=== PATIENT | female | born 1995 | race Caucasian/White ===

== ENCOUNTER 2021-10-25 17:37 | Emergency (ER) | payer OTHER, SELFPAY ==
[2021-10-25 17:46] VITALS: BP 120/86; PULSE 121; RESP 16; TEMP 37.3; O2SAT 99
--- NOTE | 2021-10-25 18:14 | ED.URI ---
HPI - URI/Sore Throat General Chief Complaint: Upper Respiratory Infection Stated Complaint: ears and throat hurts Time Seen by Provider: 10/25/21 17:50 Source: patient and RN notes reviewed Mode of arrival: ambulatory Limitations: no limitations History of Present Illness HPI Narrative: Patient presents today with a 2-day history of right ear pain, sore throat, rhinorrhea, occasional cough, and fever up to 99.6. She has been taking Tylenol and ibuprofen without relief and currently rates her pain 6/10. 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 She has been vaccinated against COVID-19 and influenza. MD elicited complaint: sore throat Related Data Allergies Allergy/AdvReac Type Severity Reaction Status Date / Time amoxicillin Allergy Unknown Verified 10/25/21 17:50 Review of Systems Review of Systems: CONSTITUTIONAL: Denies body aches, chills, or sweats.+ Fever EYES: Denies visual changes, redness, or discharge. ENT: Denies congestion. + Sore throat, right ear pain, rhinorrhea CARDIOVASCULAR: Denies chest pain, palpitations, or edema. RESPIRATORY: Denies dyspnea.+ Occasional cough GASTROINTESTINAL: Denies abdominal pain, nausea, vomiting, or diarrhea. GENITOURINARY: Denies dysuria or hematuria. SKIN: Denies rash, itching, or wounds. MUSCULOSKELETAL: Denies back pain, joint pain, or myalgia. NEUROLOGIC: Denies headache, numbness, tingling, or weakness. PSYCH: Denies depression or anxiety. PMFSH Comments At time of signature, I have reviewed and agree with nursing past medical, surgical, social and family history unless otherwise noted. Please see nursing chart for further information. There is no relevant family history pertinent to the presenting complaint Exam Narrative: GENERAL: Well-appearing, well-nourished, and in no acute distress. HEAD: Normocephalic, atraumatic. EYES: EOMI. No redness or drainage. Conjunctivae normal. ENT: Mucous membranes pink and moist. Nares clear. No rhinorrhea. TMs normal bilaterally. Throat mildly erythematous without edema or exudate. Uvula midline. NECK: Normal AROM. Supple. No lymphadenopathy. CHEST: No respiratory distress. Clear to auscultation. HEART: Regular rate and rhythm. No murmur appreciated. Normal peripheral pulses. EXTREMITIES: Normal range of motion. No edema. SKIN: Warm, dry, no rash. Capillary refill normal. Normal skin turgor. NEURO: No focal deficits. Alert and oriented x3. Gait steady. PSYCH: Normal affect. No signs of depression or anxiety. Course Vital Signs Vital signs: Vital Signs Temperature 99.1 F 10/25/21 17:46 Pulse Rate 121 H 10/25/21 17:46 Respiratory Rate 16 10/25/21 17:46 Blood Pressure 120/86 10/25/21 17:46 Pulse Oximetry 99 10/25/21 17:46 Temperature 99.1 F 10/25/21 17:46 Pulse Rate 121 H 10/25/21 17:46 Respiratory Rate 16 10/25/21 17:46 Blood Pressure 120/86 10/25/21 17:46 Pulse Oximetry 99 10/25/21 17:46 Reviewed. Pt has been instructed to follow up with her PCP regarding her elevated blood pressure today. MDM - URI/Sore Throat Differential Diagnosis Differential diagnosis: Likely upper respiratory infection, otitis media, viral infection, pharyngitis and other (Strep throat) Lab Data Attestation: I reviewed the patient's lab results. Labs: Strep Screen Presumptive Negative *(Reference Range: Negative)* Critical Care Time Critical Care Time Critical Care Time: No Discharge Plan Discharge Clinical Impression: Upper respiratory infection Qualifiers: URI type: unspecified URI Qualified Code(s): J06.9 - Acute upper respiratory infection, unspecified Pharyngitis Qualifiers: Pharyngitis/tonsillitis etiology: unspecified etiology Qualified Code(s): J02.9 - Acute pharyngitis, unspecified Patient Disposition: Home, Self-Care Condition: Stable Instructions: Pharyngitis (ED), Upper Respiratory Infectio
== END 2021-10-25 18:23 | disposition home or self-care (01) ==
PROVIDERS: Emergency Provider Nurse Practitioner; PCP Nurse Practitioner
DX: J06.9 Acute upper respiratory infection, unspecified (principal); J02.9 Acute pharyngitis, unspecified
CPT/HCPCS: 87081; 87880; 99213; G0463

== ENCOUNTER 2025-03-01 13:14 | Outpatient (CLI) | payer OTHER, SELFPAY ==
--- OUTSIDE RECORDS SUMMARY | 2025-03-01 13:34 | XMS_ITS | Clinical Summary ---
Author Organization [facility] [place] [address] Address [address] [place] [address] Care Team Providers Care Physician Executive Name Role Phone Tara Jauregui MD Primary Care Provider [phone] Allergies Active Allergy Reactions Criticality Noted Date Comments Amoxicillin Rash Medium 12/03/2023 Clindamycin Nausea & Vomiting Low 10/08/2024 Onion Anaphylaxis High 03/01/2024 Zolpidem Hallucinations High 03/11/2016 Medications 1 mg-20 mcg (24)/75 mg (4) per tablet Take 1 tablet by mouth daily 3 Active benzonatate (TESSALON) 100 mg capsuleIndicati ons:Cough Take 1 capsule (100 mg total) by mouth 3 (three) times a day as needed for cough 21 capsule 4 Active albuterol HFA (PROVENTIL HFA,VENTOLIN HFA,PROAIR HFA) 90 mcg/actuation inhaler Inhale 2 puffs every 6 (six) hours as needed 0 Active budesonide-form oteroL (SYMBICORT) 80-4.5 mcg/actuation inhaler Inhale 2 puffs daily 4 Active ergocalciferol (VITAMIN D) 50,000 unit capsule Take 1 capsule (50,000 Units total) by mouth once a week Active fluticasone propionate (FLONASE) 50 mcg/actuation nasal spray 1 spray daily Acti ve hydrOXYzine (ATARAX) 50 mg tablet Take 2 tablets nightly to help with sleep. 4 Active lidocaine viscous (XYLOCAINE) 2 % solution PLACE 5 M[address] BY MOUTH 3-4 TIMES DAILY NEEDED Active risperiDONE (RisperDAL) 0.5 mg tablet Take 1 tablet (0.5 mg total) by mouth 2 (two) times a day Active scopolamine 1 mg over 3 days patch 3 day APPLY ONE PATCH ONTO THE SKIN EVERY THIRD DAY DIRECTED Active cefdinir (OMNICEF) 300 mg capsule Take 1 capsule (300 mg total) by mouth 2 (two) times a day for 7 days 14 capsule 5 02/07/20 25 metroNIDAZOLE (FLAGYL) 500 mg tablet Take 1 tablet (500 mg total) by mouth 2 (two) times a day for 7 days 14 tablet 5 02/07/20 Active Problems No known active problems Encounters Date Type Department Care Team Description 01/30/2025 11:00 AM CDT Office Visit [facility] Medical [facility]ient [facility] at [address] [address] Samantha Crowder PA Dental infection (Primary Dx) from Last 3 Months Social History Tobacco Use Types Packs/Day Years Used Date Smoking Tobacco: Never Assessed Comments Unknown Sex and Gender Information Value Date Recorded Sex Assigned at Not on file Legal Sex 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 Gender Identity Not on file Sexual Orientation Not on file Obstetrics History Last Filed Vital Signs Vital Sign Reading Time Taken Comments Blood Pressure 114/77 01/30/2025 10:51 AM CDT Pulse 107 01/30/2025 10:51 AM CDT Temperature 36.9 C (98.4 F) 01/30/2025 10:51 AM CDT Respiratory Rate 20 01/30/2025 10:51 AM CDT Oxygen Saturation 98% 01/30/2025 10:51 AM CDT Inhaled Oxygen Concentration - - Weight 70.9 kg (156 lb 3.2 oz) 01/30/2025 10:51 AM CDT Height 157.5 cm (5' 2 ) 10/08/2024 4:20 PM BENCH WORKER APPRENTICE Body Mass Index 28.57 10/08/2024 4:20 PM BENCH WORKER APPRENTICE Plan of Treatment Health Maintenance Due Date Last Done Comments Cervical Cancer Screening 1997 Depression Screening 1997 Hepatitis C Screening 1997 Regular Well Visit/Exam 18-64 2015 Pneumococcal vaccine <65 (1 of 2 - PCV) 2016 Covid-19 Vaccine (3 - 2023- season) 2024 09/29/2021, 04/02/2021 DTaP/Tdap/Td Vaccine (7 - Td or Tdap) 08/16/2034 08/16/2024, 06/18/2009, 05/31/2003, Additional history exists Hepatitis B Screening Completed 06/11/1998, 997 Varicella Vaccines Completed 06/18/2009, 03/26/1999 Influenza Vaccine Completed 08/16/2024, 08/28/2021 HPV Vaccines Aged Out No longer eligi ble based on patient's age to complete this topic Insurance * Guarantor: Brinda Meier Account Type Relation to Patient Date of Phone Billing Address Personal/Family Self 1995 [address] [place] [address] [facility] * Guarantor: Brinda Meier Account Type Relation to Patient Date of Phone Billing Address Personal/Family Self 1995 [address] [place] [address] Care Teams Physician Executive Relationship Specialty Start Date End Date Tara Jauregui MD [address] [place] [address] PCP - General Internal Medicine 12/03/23
--- OUTSIDE RECORDS SUMMARY | 2025-03-01 13:34 | XMS_ITS | Referral Summary ---
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 Gender Identity Not on file Sexual Orientation Not on file Last Filed Vital Signs Vital Sign Reading [...] cm (5' 2 ) 10/08/2024 4:20 PM PROPERTIES SUPERVISOR Body Mass Index 28.57 10/08/2024 4:20 PM PROPERTIES SUPERVISOR Plan of Treatment Not on file Insurance * Guarantor: Brinda Meier Account Type Relation to Patient Date of Phone Billing Address Personal/Family Self 1995 [address] [place] [address] [facility] * Guarantor: Brinda Meier Account Type Relation to Patient Date of Phone Billing Address Personal/Family Self 1995 [address] [place] [address] 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
--- OUTSIDE RECORDS SUMMARY | 2025-03-01 13:34 | XMS_ITS | Clinical Summary ---
Author Organization [facility] Address [facility] [place] [address] Care Team Providers Care Business Risk Consultant Name Role Phone Tara Jauregui MD Primary Care Provider [phone] Allergies Active Allergy Reactions Criticality Noted Date Comments Amoxicillin Rash Medium 12/03/2023 Amoxicillin-Pot Clavulanate Rash Low 03/11/2016 Clindamycin Chest pressure,Nause a and Vomiting Low 10/08/2024 Onion Anaphylaxis High 03/01/2024 Zolpidem Hallucinations High 03/11/2016 Medications albuterol sulfate HFA (PROAIR HFA) 108 (90 Base) MCG/ACT inhalerIndicatio ns:Mild intermittent asthma without complication (HHS/HCC) Inhale 2 puffs into the lungs every 6 (six) hours as needed for Wheezing. 1 Inhaler 5 07/02/20 20 Active ABIGAIL FE 1.5/30 1.5-30 MG-MCG tablet Take 1 tablet by mouth daily. 12/21/19 24 Active scopolamine (TRANSDERM-SCOP) 1 MG/3DAYS patchIndications :Motion sickness, initial encounter Place 1 patch onto the skin every third day. 24 patch 3 03/01/20 24 Active EPINEPHrine 0.3 MG/0.3ML injectionIndicat ions:Allergic reaction, initial encounter Inject 0.3 mLs (0.3 mg total) into the muscle as needed for Anaphylaxis (Call 911 immediately after using EpiPen and go immediately to the emergency room). 1 each 5 03/01/20 24 Active vitamin D2, ergocalciferol, (DRISDOL) 1.25 mg capsuleIndicatio ns:Routine general medical examination at a health care facility Take 1 capsule (1.25 mg total) by mouth every 7 days. 12 capsule 3 03/01/20 24 Active budesonide-formo terol (SYMBICORT) 80-4.5 MCG/ACT inhalerIndicatio ns:Mild persistent asthma without complication (HHS/HCC) Inhale 2 puffs into the lungs daily. 10.2 g 3 05/01/20 24 Active albuterol sulfate HFA 108 (90 Base) MCG/ACT inhalerIndicatio ns:Mild persistent asthma without complication (HHS/HCC) Inhale 2 puffs into the lungs every 6 (six) hours as needed for Wheezing. 18 g 3 05/01/20 24 Active hydrOXYzine (ATARAX) 50 MG tabletIndication s:Generalized anxiety disorder,Insomni a, persistent Take 2 tablets nightly to help with sleep. 60 tablet 01/24/20 25 Active fluticasone propionate (FLONASE) 50 MCG/ACT nasal sprayIndications :Allergic reaction, initial encounter 1 spray by Each Nostril route daily. 16 mL 3 01/24/20 25 Active risperiDONE (RISPERDAL) 4 MG tabletIndication s:Bipolar affective disorder, currently depressed, mild (CMS/HCC HHS/HCC),Major depression with psychotic features (CMS/HCC HHS/HCC) Take 1 tablet (4 mg total) by mouth nightly. 90 tablet 1 02/21/20 25 Active buPROPion (WELLBUTRIN) 100 MG tabletIndication s:Major depression with psychotic features (CMS/HCC HHS/HCC) Take 1 tablet (100 mg total) by mouth daily. 180 tablet 1 02/21/20 25 Active risperiDONE (RISPERDAL) 2 MG tabletIndication s:Bipolar affective disorder, currently depressed, mild (CMS/HCC HHS/HCC),Major depression with psychotic features (CMS/HCC HHS/HCC) Take 1 tablet (2 mg total) by mouth 2 (two) times daily. 180 tablet 01/17/20 25 025 Discontin ued(Reord er) buPROPion (WELLBUTRIN) 100 MG tabletIndication s:Major depression with psychotic features (CMS/HCC HHS/HCC) Take 1 tablet (100 mg total) by mouth daily. 90 tablet 1 01/17/20 25 025 Discontin ued(Reord er) Active Problems Problem Noted Date Diagnosed Date Major depression with psychotic features (CMS/HC C [facility]) 10/23/2020 Premenstrual syndrome 09/06/2017 Decreased hearing 07/05/2017 BMI 24.0-24.9, adult 07/05/2017 Insomnia, persistent 08/17/2016 Vasculitis 04/08/2016 Depression 03/11/2016 Deaf, bilateral 03/11/2016 Asthma ([facility]) 03/11/2016 Anxiety disorder 03/11/2016 Resolved Problems Problem Noted Date Diagnosed Date Resolved Date Nausea & vomiting 06/21/2020 10/23/2020 Encounters Date Type Department Care Team Description 02/20/2025 2:40 PM CDT Office Visit [place] [address] [address] [facility] [address] [place] [address] Tara Jauregui MD Follow Up (No questions or concerns today. /4 week follow up Anxiety, BPD, Depression. /DARREL and PHQ done /); Anxiety; Depression; Bipolar Disorder 02/20/2025 Travel 01/23/2025 Telephone [facility] [address] [facility] [address] [place] [address] Tara Jauregui MD Medication 01/16/2025 1:40 PM PATIENT MANAGER Office Visit [place] [address] [address] [facility] [address] [place] [address] Tara Jauregui MD Follow Up; Anxiety; Depression; Bipolar Disorder 01/16/2025 Travel from Last 3 Months Immunizations Immunization Administration Dates Next Due Dtap 05/31/2003, 9,05/14/1998,03/25 Fluzone (IIV3, Trivalent, 0. 5 ML Prefilled Syringe) 08/16/2024 HPV GARDASIL 9-VALENT 08/16/2024,06/19/2024 Hepatitis B 06/11/1998,1997 Hepatitis B Pediatric 06/11/1998,1997 Hib (Generic) 03/26/1999,05/14/1998,03/25/1998 Influenza Adult (Generic) 08/28/2021 MMR 05/31/2003,03/26/1999 MMR (MMRII) 09/04/2015 MODERNA COVID-19 (12+) MRNA, LNP-S, PF, 100 MCG/ 0.5 ML DOSE 09/29/2021,04/02/2021 Menactra 09/10/2015 Meningococcal (Generic) 06/18/2009 Pneumococcal (Prevnar 20) 05/01/2024 Polio IPV (Ipol) 05/31/2003,05/14/1998, 8 Td (Tenivac) preservative free 1997 Tdap (Adacel) 08/16/2024 Tdap (Boostrix) 06/18/2009 Varicella Vaccine 06/18/2009,03/26/1999 Family History Medical History Relation Comments Mental Health Brother Alcohol Abuse Father Drug Abuse Father Mental Health Father COPD Maternal Aunt Cancer Maternal Aunt Arthritis Maternal Grandfather Cancer Maternal Grandfather Drug Abuse Maternal Grandfather Heart Disease Maternal Grandfather Hypertension Maternal Grandfather Mental Health Maternal Grandfather Stroke Maternal Grandfather Arthritis Maternal Grandmother COPD Maternal Grandmother Cancer Maternal Grandmother unknown lik brianne mets Drug Abuse Maternal Grandmother Heart Disease Maternal Grandmother Hypertension Maternal Grandmother Mental Health Maternal Grandmother Arthritis Mother Asthma Mother Cancer Mother chrondrosarcoma. Depression Mother Drug Abuse Mother Hypertension Mother Mental Health Mother COPD Paternal Grandfather Drug Abuse Paternal Grandfather Early Hearing Loss Paternal Grandfather Alcohol Abuse Paternal Grandmother COPD Paternal Grandmother Cancer Paternal Grandmother Hypertension Paternal Grandmother Mental Health Paternal Grandmother Stroke Paternal Grandmother Asthma Sister Depression Sister Mental Health Sister Relation Status Comments Brother Father Maternal Aunt Maternal Grandfather Maternal Grandmother Mother Paternal Grandfather Paternal Grandmother Sister Social History Tobacco Use Types Packs/Day Years Used Date Smoking Tobacco: Never Passive Smoke Exposure: Never Smokeless Tobacco: Never Tobacco Cessation:Counseling Given: Yes Comments:Counseled by Dr. Jauregui. Alcohol Use Standard Drinks/Week Comments Yes 3.3 (1 standard drink = 0.6 oz p ure alcohol) monthly AUDIT-C Answer Date Recorded Q1: How often do you have a drink containing alc ohol? Monthly or less 03/01/2024 Q2: How many drinks containi ng alcohol do you have on a typical day when you are drinking? 1 or 2 03/01/2024 Q3: How often do you have si x or more drinks on one occasion? Never 03/01/2024 PHQ-2 Answer Date Recorded Patient Health Questionnaire-2 Score 1 02/20/2025 Comments No Sex and Gender Information Value Date Recorded Sex Assigned at Female 01/16/2025 1:27 PM PATIENT MANAGER Legal Sex Female 9:13 PM CDT Gender Identity Female 01/16/2025 1:27 PM PATIENT MANAGER Sexual Orientation Bisexual 02/20/2025 2: 50 PM CDT Last Filed Vital Signs Vital Sign Reading Time Taken Comments Blood Pressure 124/84 02/20/2025 2:54 PM CDT Pulse 96 02/20/2025 2:54 PM CDT Temperature 36.2 C (97.1 F) 02/20/2025 2:54 PM CDT Respiratory Rate 16 02/20/2025 2:54 PM CDT Oxygen Saturation 98% 02/20/2025 2:54 PM CDT Inhaled Oxygen Concentration - - Weight 73 kg (161 lb) 02/20/2025 2:54 PM CDT Height 157.5 cm (5' 2 ) 02/20/2025 2:54 PM CDT Body Mass Index 29.45 02/20/2025 2:54 PM CDT Plan of Treatment Upcoming Encounters Date Type Department Care Team (Late st Contact Info) Description 05/08/2025 8:10 AM CDT Laboratory Only [facility] Medical [facility] - [place] [address] [address] [place] [address] Tara Jauregui MD [facility] [address] 05/16/2025 2:20 PM CDT Office Visit [facility] Medical Group Multispecialty [facility] [place] [address] [address] [place] [address] Tara Jauregui MD [address] [place] [phone] Health Maintenance Due Date Last Done Comments Hepatitis B Vaccines (4 of 4 - 4-dose series) 08/06/1998 06/11/1998, 06/11/1998, 1997, Additional history exists Cervical Cancer Screening Pap Smear (Age 21 to 29) Every 3 Years 08/20/2023 08/20/2020 Cervical Cancer Screening 08/20/2023 HPV Vaccines (3 - 3-dose series) 12/20/2024 08/16/2024, 06/19/2024 Annual Physical 03/01/2025 03/01/2024, 08/20/2020 COVID-19 Vaccine ( season) 2026 09/29/2021, 04/02/2021 Postponed from 07/16/2024 (Patient Refused) DTaP, Tdap and Td Vaccines (7 - Td or Tdap) 08/16/2034 08/16/2024, 06/18/2009, 05/31/2003, Additional history exists Meningococcal Vaccine Completed 09/10/2015, 009 Pneumococcal Vaccine: Pediatrics (0 to 5 Years) and At-Risk Patients (6 to 49 Years) Completed 05/01/2024 Hepatitis C Completed 08/16/2024 PHQ-2 (Physician Blachly) Completed 02/20/2025 Meningococcal B Vaccine Aged Out No l onger eligible based on patient's age to complete this topic RSV Immunizations Under 20 Months Aged Out No longer eligible based on patient's age to complete this topic Procedures Procedure Name Priority Date/Time Associated Diagnosis Comments HEPATITIS C ANTIBODY Routine 08/16/2024 9:25 AM CDT General medical exam OUTSIDE CYTOPATH CERV/VAG INTERPRET (PAP) (SCAN ORDER) 08/20/2020 from Last 3 Months or Most Recently Relevant to Health Maintenance Results * HEPATITIS C ANTIBODY (08/16/2024 9:25 AM CDT) HEPATITIS C AB NON-REACTI VE NON-REACT KHLOE 08/16/2024 8:03 PM CDT [facility] Comment: ANTIBODIES TO HCV NOT DETECTED. DOES NOT EXCLUDE THE POSSIBILITY OF EXPOSURE TO HCV. 08/16/2024 9:25 AM CDT Tara Jauregui MD LABORATORY Final Result [facility] [address] [place] [address], [place] [phone] [id number] * OUTSIDE CYTOPATH CERV/VAG INTERPRET (PAP) (08/20/2020) 08/20/2020 Narrative 08/20/2020 Ordered by an unspecified provider. us Documents Scanned SCANNING Final Result from Last 3 Months or Most Recently Relevant to Health Maintenance Insurance [place] Care Teams Business Risk Consultant Relationship Specialty Start Date End Date Tara Jauregui MD [address] [facility] [address] [place] [address] PCP - General INTERNAL MEDICINE 11/24/23
[2025-03-01 15:36] LABS: Add Urine Microscopic? YES; Appearance Urine Cloudy (Clear); Bacteria Urine 1+ /hpf; Bilirubin Urine Negative (Negative); Blood Urine Negative (Negative); Color Urine Yellow (Yellow); Glucose Urine UA Negative (Negative); Ketones Urine 2+ mg/dL (Negative); Leukocyte Esterase Ur Trace LEU/UL (Negative); Need Manual Microscopic Reviewed; Nitrate Urine Negative (Negative); Non Pathogenic Casts 0-2; Protein Urine Negative (Negative); Specific Grav Ur 1.007 (1.001-1.035); Squamous Epithelial Cell Urine Moderate /hpf (Few); Urobilinogen Urine 0.2 mg/dL (<2.0); WBC Urine 0-5 /hpf (0-3)
== END 2025-03-01 13:15 | disposition home or self-care (01) ==
PROVIDERS: PCP Internal Medicine; Visit Provider Obstetrics & Gynecology
DX: R30.0 Dysuria (principal)
CPT/HCPCS: 81001

== ENCOUNTER 2025-03-06 20:31 | Emergency (ER) | payer OTHER, SELFPAY ==
[2025-03-06 20:33] VITALS: BP 130/86; PULSE 99; RESP 18; TEMP 36.8; O2SAT 97
--- NOTE | 2025-03-06 20:50 | ED.NAVMDI ---
HPI - Nausea/Vomiting/Diarrhea General Chief complaint: Abdominal Pain Stated complaint: N/V, abd pain Time Seen by Provider: 03/06/25 20:35 History of Present Illness HPI Narrative: 29-year-old female with a past medical history including major depressive disorder. She presents to the emergency room with chief complaint of nausea vomiting. She states she was recently diagnosed with urinary tract infection on the and sent home with Macrobid. She states she has been developing some nausea vomiting since taking this medication and believe she may be having a sensitivity or intolerance to this medication. She has a history of allergies to amoxicillin clindamycin. Patient denies having any fever, chills, shortness a breath, diarrhea. She started developing some abdominal discomfort today localized to her umbilical region. Denies any trauma or injury. Denies any chance of . She was otherwise in her normal state of health. Tried some Zofran earlier today without any significant relief. Pain is minor and comes and goes. Related Data Home Medications ?Medication ?Instructions ?Recorded ?Confirmed ?Last Taken ?Type budesonide-formoterol HFA 80 2 puff inhalation Q12H 05/03/23 02/13/25 Unknown History mcg-4.5 mcg/actuation aerosol inhaler bupropion HCl 100 mg tablet mg PO 02/13/25 02/13/25 Unknown History risperidone 2 mg tablet mg PO 02/13/25 02/13/25 Unknown History Allergies Allergy/AdvReac Type Severity Reaction Status Date / Time amoxicillin Allergy Unknown Verified 02/13/25 13:25 clindamycin AdvReac Intermediate Chest Pain Verified 02/13/25 13:25 Review of Systems Review of Systems: As reviewed above in HPI [facility] Past Medical History Medical History Major depressive disorder Surgical History Surgical History History of placement of ear tubes ~2012 Family History Family History Father Alcoholism Depression Mother Asthma Cancer Hypertension Depression Sibling Asthma Depression Grandparent Alcoholism Asthma Cancer Hypertension Depression Heart disease Cerebrovascular accident Thyroid disorder Grandparent Alcoholism Depression Heart disease Cerebrovascular accident Social History Social History Social History: Caffeine- dasily Smoking status: Never smoker Alcohol intake: never Substance use: current Substance use type: marijuana Do You Feel Safe in your Home?: Yes Lack of Transportation: YES Lack of Food: Never True Current Housing: I Have Housing Concerned About Future Housing: No Difficulty Paying Gas/Electric Bills: No Difficulty Paying for Meds: No Currently Unemployed: No Education: High School Diploma/GED Difficulty w/ Childcare or Family Care: No Living arrangements: with family Occupation/Education: occupation 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 Mucous membranes moist. NECK: Supple. CHEST: [Clear to auscultation. No respiratory distress.] HEART: [Regular rate and rhythm]. No murmur heard. [Normal peripheral pulses.] ABDOMEN: [Soft, nondistended], [nontender], [No rigidity or guarding] EXTREMITIES: Normal range of motion. [No edema.] SKIN: Warm, dry, no rash. NEURO: [No focal deficits]. Alert and oriented [x3.] PSYCH: [Normal mood and affect.] Course Vital Signs Vital signs: Vital Signs Temperature 36.8 C 03/06/25 20:33 Pulse Rate 99 03/06/25 20:33 Respiratory Rate 18 03/06/25 20:33 Blood Pressure 130/86 03/06/25 20:33 Pulse Oximetry 97 03/06/25 20:33 Oxygen Delivery Room Air 03/06/25 20:33 Temperature 36.8 C 03/06/25 20:33 Pulse Rate 99 03/06/25 20:33 Respiratory Rate 18 03/06/25 20:33 Blood Pressure 128/109 H 03/06/25 22:00 Pulse Oximetry 98 03/06/25 22:00 Oxygen Delivery Room Air 03/06/25 20:33 MDM - Nausea/Vomiting/Diarrhea MDM Narrative Medical decision making narrative: 29-year-old female presenting to the emergency department with nausea vomiting for several days. Recently diagnosed with the urinary tract infection and started on Macrobid. She has a history of intolerance to several antibiotics and thinks she could be having some difficulties with Macrobid as she has never had before. Denies any diarrhea, shortness a breath, fever chills. She is not remarkable examination was soft nontender nondistended abdomen. Normal vital signs. She did she was complaining of some umbilical pain that comes and goes but has been on breast examination. She denies any urinary complaints at this time and states that she feels like this is cleared up. Given her overall well appearance and normal vital signs with a largely unremarkable examination suspicion for intra-abdominal pathology such as appendicitis, gastritis, gastroenteritis is low. Possibility for Macrobid causing GI distress. Will obtain laboratory studies including CBC, CMP, lipase. She was given a fluid bolus and some Reglan as Zofran was not helping her at home. Patient will be re-evaluated. Will hold off on any imaging studies at this time given her age unless there is some concerning findings on laboratory exam or reassessments. Patient's workup was reassuring. No leukocytosis or anemia. Normal platelet count. Her electrolytes show a anion gap of 15, normal glucose, normal electrolytes otherwise. Consistent with a starvation ketosis especially with her urinalysis showing 4+ ketones. Normal LFTs. She was given a D5 LR bolus in addition to her fluids. Urinalysis shows squamous cells and contamination, no convincing evidence of urinary tract infection. Patient has normal vital signs, normal workup here and can be safely discharged home at this time. She is given a prescription for Reglan as needed and return precautions and instructed to follow-up with her primary care provider. Medical Records Attestation: I reviewed the patient's medical records. Lab Data Attestation: I reviewed the patient's lab results. 03/06/25 20:59 03/06/25 20:59 Labs: Lab Results 03/06/25 03/06/25 03/06/25 Range/Units 20:59 21:25 21:55 WBC 9.1 (4.5-10.0) K/mm3 RBC 4.78 (4.2-5.4) M/mm3 Hgb 12.7 (12.0-15.0) g/dL Hct 40.3 (37.0-47.0) % MCV 84.3 (80-100) fl MCH 26.6 (26-34) pg MCHC 31.5 L (32-36) g/dl RDW 14.1 (11.5-14.5) % Plt Count 319 (150-375) k/mm3 MPV 10.6 H (7.4-10.4) fl Immature Gran % (Auto) 0.3 (0-0.5) % Neut % (Auto) 78.0 H (45.5-73.1) % Lymph % (Auto) 15.0 L (18.3-44.2) % [place] % (Auto) 5.7 (2.6-8.5) % Eos % (Auto) 0.6 (0-4.4) % Baso % (Auto) 0.4 (0.2-1.2) % Lymph # (Auto) 1.36 (0.9-3.2) K/mm3 [place] # (Auto) 0.5 (0.1-0.6) K/mm3 Eos # (Auto) 0.1 (0-0.3) K/mm3 Baso # (Auto) 0.0 (0.0-0.1) K/mm3 Abs Immat Gran (auto) 0.03 (0.00-0.031) K/mm3 Absolute Neuts (auto) 7.1 H (1.3-6.7) K/mm3 Absolute Nucleated RBC 0.000 (0.0-0.012) K/mm3 Nucleated RBC % 0.0 (0.0-0.2) % Sodium 140 (137-145) mmol/L Potassium 3.9 (3.4-5.0) mmol/L Chloride 106 (98-107) mmol/L Carbon Dioxide 19 L (22-30) mmol/L Anion Gap 15 H (4-12) mmol/L BUN 5 L (7-17) mg/dL Creatinine 0.68 L (0.7-1.0) mg/dL Estim Creat Clear Calc 97 ml/min Estimated GFR > 60 (59 - ) Glucose 93 (65-110) mg/dL Calcium 9.3 (8.4-10.2) mg/dL Total Bilirubin 0.8 (0.2-1.3) mg/dL AST 24 (14-36) U/L ALT 18 (6-35) U/L Alkaline Phosphatase 70 (38-126) U/L Total Protein 8.0 (6.3-8.2) g/dL Albumin 4.8 (3.5-5.1) g/dL Lipase 54 (23-300) U/L Urine Color Yellow (Yellow) Urine Appearance Cloudy H (Clear) Urine pH 6.5 (5.0-9.0) Ur Specific [place] 1.027 (1.001-1.035) Urine Protein 1+ H (Negative) mg/dL Urine Glucose (UA) Negative (Negative) mg/dL Urine Ketones 4+ H (Negative) mg/dL Ur Blood (Man) Trace (Negative) Urine Nitrate Negative (Negative) Urine Bilirubin Negative (Negative) Urine Urobilinogen 1.0 (<2.0) mg/dL Leukocyte Esterase Rfl Negative (Negative) ELFEGO/UL Urine RBC 3-5 H (0-2) /hpf Urine WBC 0-5 (0-3) /hpf Ur Squamous Epith Cells Moderate (Few) /hpf Urine Bacteria 1+ H /hpf Urine Casts 3-5 POC Urine HCG, Qual Negative (Negative) Discharge Plan Discharge Clinical Impression: Nausea & vomiting, Starvation ketoacidosis Patient Disposition: Home Condition: Stable Instructions: Antibiotic Form, Acute Nausea and Vomiting (DC) Additional Instructions: Your laboratory studies show a little dehydration but no other concerning findings. Your urine does not appear to have an infection. We will send you home with some as needed Reglan for any continued nausea or vomiting. Follow-up with your regular doctor outpatient. Return with any emergent concerns or persistent/worsening symptoms. Patient Language: Hungarian Prescriptions: New metoclopramide HCl [Reglan] 5 mg tablet 5 mg PO Q8H PRN (Reason: nausea and vomiting) Qty: 10 0RF No Action norethindrone-e.estradiol-iron [Junel FE 1.5/30 (28)] 1.5 mg-30 mcg (21)/75 mg (7) tablet 1 tablet PO DAILY Qty: 84 4RF naproxen [Naprosyn] 500 mg tablet 500 mg PO BID Qty: 60 2RF risperidone 2 mg tablet PO bupropion HCl 100 mg tablet PO budesonide-formoterol 80-4.5 mcg/actuation HFA aerosol inhaler 2 puff inhalation Q12H fluticasone propionate [Flonase Allergy Relief] 50 mcg/actuation spray,suspension 2 spray intranasal DAILY Qty: 18 5RF Rx Instructions: administer into each nostril nitrofurantoin monohyd/m-cryst [Macrobid] 100 mg capsule 100 mg PO Q12H 7 Days Qty: 14 0RF Rx Instructions: must administer with a meal/food sulfamethoxazole-trimethoprim [Bactrim DS] 800-160 mg tablet 1 tablet PO Q12H 3 Days Qty: 6 0RF fluconazole 150 mg tablet 150 mg PO ONCE PRN (Reason: vaginal itching) Qty: 1 0RF Rx Instructions: as a single dose Follow-up/Referrals: Juventino,MD Tara [Primary Care Provider] - Time of Disposition: 22:15
[2025-03-06 21:06] LABS: Basophils Percent Auto 0.4 % (0.2-1.2); Eosinophils Absolute Auto 0.1 K/mm3 (0-0.3); Eosinophils Percent Auto 0.6 % (0-4.4); Hematocrit 40.3 % (37.0-47.0); Hemoglobin 12.7 g/dL (12.0-15.0); Immature Granulocyte Absolute 0.03 K/mm3 (0.00-0.031); Immature Granulocyte Percent A 0.3 % (0-0.5); Lymphocytes Absolute Auto 1.36 K/mm3 (0.9-3.2); Mean Corpuscular HGB Conc 31.5 g/dl (32-36); Mean Corpuscular Hemoglobin 26.6 pg (26-34); Mean Corpuscular Volume 84.3 fl (80-100); Mean Platelet Volume 10.6 fl (7.4-10.4); Monocytes Absolute Auto 0.5 K/mm3 (0.1-0.6); Monocytes Percent Auto 5.7 % (2.6-8.5); Neutrophils Absolute Auto 7.1 K/mm3 (1.3-6.7); Platelet Count Result 319 k/mm3 (150-375); Red Blood Count 4.78 M/mm3 (4.2-5.4); Red Cell Distribution Width 14.1 % (11.5-14.5); White Blood Count 9.1 K/mm3 (4.5-10.0)
[2025-03-06] MEDS: SODIUM CHLORIDE 0.9% IV 1,000 ML 999 ML IV CONT (21:16)
[2025-03-06] MEDS: METOCLOPRAMIDE HCL INJ 10 MG/2 ML VIAL IV PUSH (21:16)
[2025-03-06 21:19] LABS: Alanine Aminotransferase 18 U/L (6-35); Albumin Level 4.8 g/dL (3.5-5.1); Alkaline Phosphatase 70 U/L (38-126); Anion Gap 15 mmol/L (4-12); Aspartate Amino Transferase 24 U/L (14-36); Bilirubin,Total 0.8 mg/dL (0.2-1.3); Blood Urea Nitrogen 5 mg/dL (7-17); Calcium 9.3 mg/dL (8.4-10.2); Carbon Dioxide 19 mmol/L (22-30); Chloride 106 mmol/L (98-107); Estimated CRCL calculation 97 ml/min; Estimated Glomerular Filt Rate > 60; Glucose 93 mg/dL (65-110); Lipase 54 U/L (23-300); Potassium 3.9 mmol/L (3.4-5.0); Sodium 140 mmol/L (137-145)
--- OUTSIDE RECORDS SUMMARY | 2025-03-06 21:23 | XMS_ITS | Clinical Summary ---
Author Organization [facility] Address [facility] [place] [address] Care Team Providers Care Software Quality Specialist Name Role Phone Tara Jauregui MD Primary Care Provider [phone] Allergies Active Allergy Reactions Criticality Noted Date [...] Major depression with psychotic features (CMS/HC C [facility]) 10/23/2020 Premenstrual syndrome 09/06/2017 Decreased hearing 07/05/2017 BMI 24.0-24.9, adult 07/05/2017 Insomnia, persistent 08/17/2016 Vasculitis 04/08/2016 Depression 03/11/2016 Deaf, bilateral 03/11/2016 Asthma ([facility]) 03/11/2016 Anxiety disorder 03/11/2016 Resolved Problems Problem Noted Date Diagnosed Date Resolved Date Nausea & vomiting 06/21/2020 10/23/2020 Encounters Date Type Department Care Team Description 02/20/2025 2:40 PM CDT Office Visit [place] [address] [place] [address] Tara Jauregui MD Follow Up (No questions or concerns today. /4 week follow up Anxiety, BPD, Depression. /DARREL and PHQ done /); Anxiety; Depression; Bipolar Disorder 02/20/2025 Travel 01/23/2025 Telephone [facility] [address] [place] [address] Tara Jauregui MD Medication 01/16/2025 1:40 PM [employer] Office Visit [place] [address] [place] [address] Tara Jauregui MD Follow Up; Anxiety; Depression; [...] Sex Assigned at Female 01/16/2025 1:27 PM [employer] Legal Sex Female 9:13 PM CDT Gender Identity Female 01/16/2025 1:27 PM [employer] Sexual Orientation Bisexual 02/20/2025 2: 50 PM [...] 2:54 PM CDT Height 157.5 cm (5' 2) 02/20/2025 2:54 PM CDT Body Mass Index 29.45 02/20/2025 2:54 PM CDT Plan of Treatment Upcoming Encounters Date Type Department Care Team (Late st Contact Info) Description 05/08/2025 8:10 AM CDT Laboratory Only [facility] Medical [facility] - [place] [address] [place] [id number] Tara Jauregui MD [facility] [address] [address] 05/16/2025 2:20 PM CDT Office Visit [facility] Medical Group Multispecialty [facility] - [place] [address] [address] [place] [address] Tara Jauregui MD [address] [place] [address] Health Maintenance Due Date Last Done Comments [...] 05/01/2024 Hepatitis C Completed 08/16/2024 PHQ-2 (Physician [place]) Completed 02/20/2025 Meningococcal B Vaccine Aged Out [...] VE NON-REACT KHLOE 08/16/2024 8:03 PM CDT [facility] Comment: ANTIBODIES TO HCV NOT DETECTED. DOES NOT EXCLUDE THE POSSIBILITY OF EXPOSURE TO HCV. 08/16/2024 9:25 AM CDT Tara Jauregui MD LABORATORY Final Result [facility] [address] [place] [address], [place] [phone] [id number] * OUTSIDE CYTOPATH CERV/VAG INTERPRET (PAP) (08/20/2020) 08/20/2020 Narrative 08/20/2020 Ordered by an unspecified provider. us Documents Scanned SCANNING Final Result from Last 3 Months or Most Recently Relevant to Health Maintenance Insurance [employer] Care Teams Software Quality Specialist Relationship Specialty Start Date End Date Tara Jauregui MD [address] [facility] [address] [place] [address] PCP - General INTERNAL MEDICINE 11/24/23
--- OUTSIDE RECORDS SUMMARY | 2025-03-06 21:23 | XMS_ITS | Clinical Summary ---
Author Organization [place] [address] [address] Address [address] [place] [address] Care Team Providers Care Financial Recording Clerk Name Role Phone Tara Jauregui MD Primary Care Provider Allergies Active Allergy Reactions Criticality Noted Date [...] Description 01/30/2025 11:00 AM CDT Office Visit [facility] at [address] [address] Samantha Crowder PA Dental infection (Primary Dx) from Last 3 Months Social History Tobacco Use Types Packs/Day Years Used Date Smoking Tobacco: Never Assessed Comments Unknown Sex and Gender Information Value Date Recorded Sex Assigned at Not on file Legal Sex Female 11:22 AM 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 Gender Identity Not on file Sexual Orientation [...] 10:51 AM CDT Height 157.5 cm (5' 2) 10/08/2024 4:20 PM 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 Body Mass Index 28.57 10/08/2024 4:20 PM 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 Plan of Treatment Health Maintenance Due Date [...] Personal/Family Self 1995 [address] [place] [address] [facility] * Guarantor: Brinda Meier Account Type Relation to Patient Date of Phone Billing Address Personal/Family Self 1995 [address] [place] [address] Care Teams Financial Recording Clerk Relationship Specialty Start Date End Date Tara Jauregui MD [address] [place] [address] PCP - General Internal Medicine 12/03/23
--- OUTSIDE RECORDS SUMMARY | 2025-03-06 21:23 | XMS_ITS | Referral Summary ---
Author Organization [address] Address [address] [place] [address] Care Team Providers Care Montessori Program Director Name Role Phone Tara Jauregui MD Primary Care Provider [phone] Encounters Date Type Department Care Team Description 01/30/2025 11:00 AM CDT Office Visit [facility] at [address] [address] Samantha Crowder PA Dental infection [...] on file Legal Sex Female 11:22 AM TERRITORY REPRESENTATIVE Gender Identity Not on file Sexual Orientation [...] 157.5 cm (5' 2) 10/08/2024 4:20 PM TERRITORY REPRESENTATIVE Body Mass Index 28.57 10/08/2024 4:20 PM TERRITORY REPRESENTATIVE Plan of Treatment Not on file Insurance * Guarantor: Brinda Meier Account Type Relation to Patient Date of Phone Billing Address Personal/Family Self 1995 [address] [place] [address] [facility] * Guarantor: Brinda Meier Account Type Relation to Patient Date of Phone Billing Address Personal/Family Self 1995 [address] [place] [address] Care Teams Montessori Program Director Relationship Specialty Start Date End Date Tara Jauregui MD [address] [place] [address] PCP - General Internal Medicine 12/03/23
[2025-03-06 21:28] LABS: BEDSIDEPREGUCG Negative (Negative)
[2025-03-06 21:30] VITALS: BP 126/83; O2SAT 97
--- NOTE | 2025-03-06 21:36 | PC.NURSE ---
Educated pt on importance of providing a urine sample. Pt states she can't go right now. RN informed of alternatives to receiving the urine. Pt denied alternatives and states she believes she will able to go in 5 minutes.
--- NOTE | 2025-03-06 21:50 | PC.NURSE ---
New Urine sample collected. Sent to lab.
[2025-03-06] MEDS: DEXTROSE 5%/LACTATED RINGERS 1,000 ML 1000 ML IV CONT (21:52)
[2025-03-06 22:00] VITALS: BP 128/109; O2SAT 98
[2025-03-06 22:05] LABS: Add Urine Microscopic? YES; Appearance Urine Cloudy (Clear); Bacteria Urine 1+ /hpf; Bilirubin Urine Negative (Negative); Blood Urine Trace (Negative); Color Urine Yellow (Yellow); Glucose Urine UA Negative (Negative); Ketones Urine 4+ mg/dL (Negative); Leukocyte Esterase Ur Negative LEU/UL (Negative); Nitrate Urine Negative (Negative); Protein Urine 1+ mg/dL (Negative); Specific Grav Ur 1.027 (1.001-1.035); Squamous Epithelial Cell Urine Moderate /hpf (Few); WBC Urine 0-5 /hpf (0-3); pH Urine 6.5 (5.0-9.0)
--- NOTE | 2025-03-06 22:50 | PC.NURSE ---
RN attempted to discharge pt. Pt family member had questions. RN attempted to answer the questions to the best of my knowledge. Pt refused to leave until they spoke to a . JERRY notified.
--- NOTE | 2025-03-06 23:00 | PC.NURSE ---
EDP at bedside answering pt and pt family questions.
[2025-03-06 23:13] VITALS: BP 120/80; PULSE 93; RESP 16; O2SAT 100
--- NOTE | 2025-03-07 00:25 | PC.NURSE ---
EDP at bedside answering pt and pt family questions.
== END 2025-03-06 23:10 | disposition home or self-care (01) ==
PROVIDERS: Emergency Provider Student in an Organized Health Care Education/Training Program; PCP Internal Medicine
DX: R11.2 Nausea with vomiting, unspecified (principal); E87.29 Other acidosis; F32.A Depression, unspecified; E86.0 Dehydration
CPT/HCPCS: 36415; 80053; 81001; 81025; 83690; 85025; 96361; 96374; 99284; J2765; J7030; J7121

== ENCOUNTER 2025-11-09 13:44 | Emergency (ER) | payer OTHER, SELFPAY ==
--- OUTSIDE RECORDS SUMMARY | 2025-11-09 13:47 | XMS_ITS | Clinical Summary ---
Author Organization [facility] Address [facility] access hospital[address] [place] [address] Care Team Providers Care Mounted Police Name Role Phone Tara Jauregui MD Primary Care Provider [phone] Allergies Active Allergy Reactions Criticality Noted Date Comments Amoxicillin Rash Medium 12/03/2023 Amoxicillin-Pot Clavulanate Rash Low 03/11/2016 Clindamycin Chest pressure,Nause a and Vomiting Low 10/08/2024 Onion Anaphylaxis High 03/01/2024 Zolpidem Hallucinations High 03/11/2016 Medications EPINEPHrine 0.3 MG/0.3ML injectionIndica tions:Allergic reaction, initial encounter Inject 0.3 mLs (0.3 mg total) into the muscle as needed for Anaphylaxis (Call 911 immediately after using EpiPen and go immediately to the emergency room). 1 each 5 03/01/20 24 Active budesonide-form oterol (SYMBICORT) 80-4.5 MCG/ACT inhalerIndicati ons:Mild persistent asthma without complication (HHS/HCC) Inhale 2 puffs into the lungs daily. 10.2 g 3 05/16/20 25 Active azelastine 0.1 % nasal sprayIndication s:Mild intermittent asthma without complication (HHS/HCC),Aller gic rhinitis due to pollen, unspecified seasonality 2 sprays by Nasal route 2 (two) times daily as needed for Rhinitis (nasal congestion). Use in each nostril as directed 10 mL 3 05/16/20 25 Active albuterol sulfate HFA 108 (90 Base) MCG/ACT inhalerIndicati ons:Mild persistent asthma without complication (HHS/HCC) Inhale 2 puffs into the lungs every 6 (six) hours as needed for Wheezing. 18 g 3 05/16/20 25 Active fluticasone propionate (FLONASE) 50 MCG/ACT nasal sprayIndication s:Allergic reaction, initial encounter 1 spray by Each Nostril route daily. 16 mL 3 05/16/20 25 Active vitamin D2, ergocalciferol, (DRISDOL) 1.25 mg capsuleIndicati ons:Routine general medical examination at a health care facility Take 1 capsule (1.25 mg total) by mouth every 7 days. 12 capsule 3 05/16/20 25 Active ferrous sulfate, 65 mg elemental, 325 (65 FE) MG tabletIndicatio ns:Anemia, unspecified type Take 1 tablet (325 mg total) by mouth daily with breakfast. 90 tablet 1 05/17/20 25 Active cetirizine (ZYRTEC) 10 MG tabletIndicatio ns:Allergic rhinitis due to pollen, unspecified seasonality Take 1 tablet by mouth once daily 30 tablet 07/15/20 25 Active buPROPion (WELLBUTRIN) 100 MG tabletIndicatio ns:Major depression with psychotic features (CMS/HCC HHS/HCC) Take 1 tablet (100 mg total) by mouth 2 (two) times daily. 180 tablet 1 07/23/20 25 Active risperiDONE (RISPERDAL) 4 MG tabletIndicatio ns:Major depression with psychotic features (CMS/HCC HHS/HCC),Bipola r affective disorder, currently depressed, mild (CMS/HCC HHS/HCC) Take 1 tablet (4 mg total) by mouth nightly. 7 tablet 10/20/20 25 Active scopolamine (TRANSDERM-SCOP ) 1 MG/3DAYS patchIndication s:Motion sickness, initial encounter APPLY 1 PATCH TOPICALLY EVERY 3RD DAY DIRECTED 2 patch 10/31/20 25 Active risperiDONE (RISPERDAL) 4 MG tabletIndicatio ns:Major depression with psychotic features (CMS/HCC HHS/HCC),Bipola r affective disorder, currently depressed, mild (CMS/HCC HHS/HCC) Take 1 tablet (4 mg total) by mouth nightly. 90 tablet 1 07/23/20 25 2024 Discontinued(R eorder) scopolamine (TRANSDERM-SCOP ) 1 MG/3DAYS patchIndication s:Motion sickness, initial encounter APPLY 1 PATCH TOPICALLY ONCE EVERY 3RD DAY DIRECTED 10 patch 08/23/20 25 2024 Discontinued Active Problems Problem Noted Date Diagnosed Date Major depression with psychotic features 020 Premenstrual syndrome 09/06/2017 Decreased hearing 07/05/2017 BMI 24.0-24.9, adult 07/05/2017 Insomnia, persistent 08/17/2016 Vasculitis 04/08/2016 Depression 03/11/2016 Deaf, bilateral 03/11/2016 Asthma 03/11/2016 Anxiety disorder 03/11/2016 Resolved Problems Problem Noted Date Diagnosed Date Resolved Date Nausea & vomiting 06/21/2020 10/23/2020 Encounters Date Type Department Care Team Description 10/20/2025 Orders Only [facility] Medical [facility] - [place] [address] [place] [address] Tara Jauregui MD 08/23/2025 1:30 PM CDT Allied Health/Nurse Visit [facility] [address] [place] [address] Tara Jauregui MD Allied Health Visit (Pt here for vaccines. /) 08/23/2025 Travel from Last 3 Months Immunizations Immunization Administration Dates Next Due Dtap 05/31/2003, 9,05/14/1998,03/25 Dtap (Acel-Immune) 05/31/2003, 9,05/14/1998,03/25 Fluzone (IIV3, Trivalent, 0. 5 ML Prefilled Syringe) 08/23/2025,08/16/2024 HPV GARDASIL 9-VALENT 08/23/2025, 025,08/16/2024,06/19 Hepatitis B 06/11/1998,1997 Hepatitis B Pediatric 06/11/1998,1997 Hib (Generic) 03/26/1999,05/14/1998,03/25/1998 Influenza Adult (Generic) 08/28/2021 MMR 05/31/2003,03/26/1999 MMR (MMRII) 09/04/2015,05/31/2003,03/26/1999 MODERNA COVID-19 (12+) MRNA, LNP-S, PF, 100 MCG/ 0.5 ML DOSE 09/29/2021,04/02/2021 Menactra 09/10/2015 Meningococcal (Generic) 06/18/2009 Meningococcal (Menactra) 09/10/2015 Pneumococcal (Prevnar 20) 05/01/2024 Polio IPV (Ipol) 05/31/2003,05/14/1998, 8 Td (Tenivac) preservative free 1997 Tdap (Adacel) 08/16/2024 Tdap (Boostrix) 06/18/2009 Tdap (Generic) 06/18/2009 Varicella (Varivax) 06/18/2009,03/26/1999 Varicella Vaccine 06/18/2009,03/26/1999 Family History Medical History [...] Answer Date Recorded Patient Health Questionnaire-2 Score 2 07/23/2025 Comments No Sex and Gender Information Value Date Recorded Sex Assigned at Female 01/16/2025 1:27 PM AVID EDITOR Legal Sex Female 9:13 PM CDT Gender Identity Female 01/16/2025 1:27 PM AVID EDITOR Sexual Orientation Bisexual 02/20/2025 2: 50 PM CDT Last Filed Vital Signs Vital Sign Reading Time Taken Comments Blood Pressure 127/76 07/23/2025 3:18 PM CDT Pulse 76 07/23/2025 3:18 PM CDT Temperature 35.2 C (95.4 F) 07/23/2025 3:18 PM CDT Respiratory Rate 16 07/23/2025 3:18 PM CDT Oxygen Saturation 98% 07/23/2025 3:18 PM CDT Inhaled Oxygen Concentration - - Weight 75.6 kg (166 lb 9.6 oz) 07/23/2025 3:18 P M CDT Height 157.5 cm (5' 2) 07/23/2025 3:18 PM CDT Body Mass Index 30.47 07/23/2025 3:18 PM CDT Plan of Treatment Upcoming Encounters Date Type Department Care Team (Late st Contact Info) Description 11/26/2025 2:00 PM AVID EDITOR Office Visit [facility] Medical Group Multispecialty Care - [place] [address] [address] [place] [address] Tara Jauregui MD [address] [place] [id number] Health Maintenance Due Date Last Done Comments Hepatitis B Vaccines (4 of 4 - 4-dose series) 08/06/1998 06/11/1998, 06/11/1998, 1997, Additional history exists COVID-19 Vaccine ( season) 2025 09/29/2021, 04/02/2021 Annual Physical 05/16/2026 05/16/2025, 02/13, 08/20/2020 Cervical Cancer Screening Pap Smear (Age 21 to 29) Every 3 Years 02/14/2028 02/13/2025, 08/20/2020 Cervical Cancer Screening 02/14/2028 DTaP, Tdap and Td Vaccines (8 - Td or Tdap) 08/16/2034 08/16/2024, 06/18/2009, 06/18/2009, Additional history exists Meningococcal Vaccine Completed 09/10/2015 , 09/10/2015, 06/18/2009 Pneumococcal Vaccine: Pediatrics (0 to 5 Years) and At-Risk Patients (6 to 49 Years) Completed 05/01/2024 Hepatitis C Completed 08/16/2024 PHQ-2 (Physician [place]) Completed 07/23/2025 HPV Vaccines Completed 08/23/2025, 06/2025, 08/16/2024, Additional history exists Influenza Adult Completed 08/23/2025, 12/2023, 08/28/2021 Hepatitis A Vaccines Aged Out No long er eligible based on patient's age to complete this topic Meningococcal B Vaccine Aged Out No l onger eligible based on patient's age to complete this topic RSV Immunizations Under 20 Months Aged Out No longer eligible based on patient's age to complete this topic Procedures Procedure Name Priority Date/Time Associated Diagnosis Comments OUTSIDE CYTOPATH CERV/VAG INTERPRET (PAP) 02/13/2025 HEPATITIS C ANTIBODY Routine 08/16/2024 9:25 AM CDT General medical exam from Last 3 Months or Most Recently Relevant to Health Maintenance Results * PAP SMEAR WITH HPV (02/13/2025) 02/13/2025 [facility] Scanned SCANNING Final Resu lt * HEPATITIS C ANTIBODY (08/16/2024 9:25 AM CDT) HEPATITIS C AB NON-REACTI VE NON-REACT KHLOE 08/16/2024 8:03 PM CDT [facility] Comment: ANTIBODIES TO HCV NOT DETECTED. DOES NOT EXCLUDE THE POSSIBILITY OF EXPOSURE TO HCV. 08/16/2024 9:25 AM CDT Tara Jauregui MD LABORATORY Final Result [facility] [address] [place] [address], [id number] from Last 3 Months or Most Recently Relevant to Health Maintenance Insurance [employer] Care Teams Mounted Police Relationship Specialty Start Date End Date Tara Jauregui MD [address] [place] [address] PCP - General INTERNAL MEDICINE 11/24/23
--- OUTSIDE RECORDS SUMMARY | 2025-11-09 13:47 | XMS_ITS | Clinical Summary ---
Author Organization [facility] [address] [place] Address [address] [place] [address] Care Team Providers Care Application Systems Architect Name Role Phone Tara Jauregui MD Primary Care Provider [phone] Allergies Active Allergy Reactions Criticality Noted Date [...] THE SKIN EVERY THIRD DAY DIRECTED Active Active Problems No known active problems Social History Tobacco Use Types Packs/Day Years Used Date Smoking Tobacco: Never Assessed Comments Unknown Sex and Gender Information Value Date Recorded Sex Assigned at Not on file Legal Sex Female 11:22 AM DELICATESSEN GOODS STOCK CLERK Gender Identity Not on file Sexual Orientation [...] 157.5 cm (5' 2) 10/08/2024 4:20 PM DELICATESSEN GOODS STOCK CLERK Body Mass Index 28.57 10/08/2024 4:20 PM DELICATESSEN GOODS STOCK CLERK Plan of Treatment Health Maintenance Due Date Last Done Comments Cervical Cancer Screening 1997 Depression Screening 1997 Hepatitis C Screening 1997 Regular Well Visit/Exam 18-64 2015 Pneumococcal vaccine <65 (1 of 2 - PCV) 2016 HPV Vaccines (1 - 3-dose SCD M series) 2024 Covid-19 Vaccine (3 - 2024-2 6 season) 2025 09/29/2021, 04/02/2021 Influenza Vaccine (#1) 2025 08/16/2024, 2020 DTaP/Tdap/Td Vaccine (7 - Td or Tdap) 08/16/2034 08/16/2024, 06/18/2009, 05/31/2003, Additional history exists Hepatitis B Screening Completed 06/11/1998, 997 Varicella Vaccines Completed 06/18/2009, 03/26/1999 Insurance * Guarantor: Brinda Meier Account Type Relation to Patient Date of Phone Billing Address Personal/Family Self 1995 [address] [place] [address] [facility] * Guarantor: Brinda Meier Account Type Relation to Patient Date of Phone Billing Address Personal/Family Self [address] [place] [address] Care Teams Application Systems Architect Relationship Specialty Start Date End Date Tara Jauregui MD [address] [place], [place] [phone] PCP - General Internal Medicine 12/03/23
--- OUTSIDE RECORDS SUMMARY | 2025-11-09 18:03 | XMS_ITS | Clinical Summary ---
Author Organization [facility] [address] [place] Address [address] [place] [address] Care Team Providers Care Family Welfare Social Work Professor Name Role Phone Tara Jauregui MD Primary Care Provider [phone] Allergies Active Allergy Reactions Criticality Noted Date [...] on file Legal Sex Female 11:22 AM SECURITY EXPERT Gender Identity Not on file Sexual Orientation [...] 157.5 cm (5' 2) 10/08/2024 4:20 PM SECURITY EXPERT Body Mass Index 28.57 10/08/2024 4:20 PM SECURITY EXPERT Plan of Treatment Health Maintenance Due Date [...] Personal/Family Self 1995 [address] [place] [address] [facility] * Guarantor: Brinda Meier Account Type Relation to Patient Date of Phone Billing Address Personal/Family Self [address] [place] [address] Care Teams Family Welfare Social Work Professor Relationship Specialty Start Date End Date Tara Jauregui MD [address] [place], [place] [id number] PCP - General Internal Medicine 12/03/23
--- OUTSIDE RECORDS SUMMARY | 2025-11-09 18:03 | XMS_ITS | Clinical Summary ---
Author Organization [facility] Address [facility] [place] [address] Care Team Providers Care Sod Farmer Name Role Phone Tara Jauregui MD Primary Care Provider [phone] Allergies Active Allergy Reactions Criticality Noted Date [...] Department Care Team Description 10/20/2025 Orders Only [facility] Medical [facility]pec[facility] Care - [place] [address] [place] [address] Tara Jauregui MD 08/23/2025 1:30 PM CDT Allied Health/Nurse Visit [facility] [address] [place] [address] Tara Jauregui MD Allied Health Visit (Pt [...] Sex Assigned at Female 01/16/2025 1:27 PM SENIOR VICE PRESIDENT Legal Sex Female 9:13 PM CDT Gender Identity Female 01/16/2025 1:27 PM SENIOR VICE PRESIDENT Sexual Orientation Bisexual 02/20/2025 2: 50 PM [...] st Contact Info) Description 11/26/2025 2:00 PM SENIOR VICE PRESIDENT Office Visit [facility] Medical Group Multispecialty Care - [place] [address] [address] [place] [address] Tara Jauregui MD [address] [place] [id number] Health Maintenance Due Date Last Done Comments [...] 05/01/2024 Hepatitis C Completed 08/16/2024 PHQ-2 (Physician [place]) Completed 07/23/2025 HPV Vaccines Completed 08/23/2025, 06/2025, [...] VE NON-REACT KHLOE 08/16/2024 8:03 PM CDT [facility] Comment: ANTIBODIES TO HCV NOT DETECTED. DOES NOT EXCLUDE THE POSSIBILITY OF EXPOSURE TO HCV. 08/16/2024 9:25 AM CDT Tara Jauregui MD LABORATORY Final Result [facility] [address] [place] [address], [id number] from Last 3 Months or Most Recently Relevant to Health Maintenance Insurance [employer] Care Teams Sod Farmer Relationship Specialty Start Date End Date Tara Jauregui MD [address] [facility] [address] [place] [address] PCP - General INTERNAL MEDICINE 11/24/23
== END 2025-11-09 17:35 | disposition left against medical advice (07) ==
LOC: ANHED 18:01
PROVIDERS: PCP Internal Medicine
DX: R10.31 Right lower quadrant pain (principal)
CPT/HCPCS: 99199